=== PATIENT | male | born 1965 | race Two or more races ===

== ENCOUNTER → 2025-06-01 | Outpatient (CLI) | payer OTHER ==
[2025-06-01 08:51] LABS: Urine Protein, UAD Negative (Negative)
[2025-06-01 09:01] LABS: Hematocrit 48.7 % (41.0-53.0); Hemoglobin 17.0 g/dL (13.5-17.5); Mean Corpuscular Hemoglobin 32.3 pg (28.0-32.0); Mean Corpuscular Volume 92.7 fL (80.0-100.0); Nucleated Red Blood Cells % 0.2 %
[2025-06-01 09:18] LABS: Alanine Aminotransferase 29 U/L (7-40); Albumin 4.5 g/dL (3.2-4.8); Alkaline Phosphatase 91 U/L (46-116); Anion Gap 10 (5-15); BUN/Creatinine Ratio 8.5 (10.0-20.0); Calcium 10.3 mg/dL (8.7-10.4); Carbon Dioxide 27 mmol/L (20-31); Chloride 103 mmol/L (98-107); Glucose 93 mg/dL (74-106); Sodium 140 mmol/L (136-145); Total Protein 7.5 g/dL (5.7-8.2)
[2025-06-01 09:19] LABS: HDL Cholesterol 52 mg/dL (40-59)
[2025-06-01 09:20] LABS: Bilirubin, Total 0.9 mg/dL (0.2-1.0)
[2025-06-01 09:25] LABS: Blood Urea Nitrogen 8 mg/dL (9-23); Cholesterol 239 mg/dL (< 200); Potassium 3.4 mmol/L (3.5-5.1); Triglycerides 413 mg/dL (< 150)
[2025-06-01 11:12] LABS: Hepatitis A Total Antibody Positive (Negative); Hepatitis B Surface Antigen Negative (Negative)
[2025-06-01 11:13] LABS: Hepatitis C Antibody Negative (Negative)
[2025-06-01 12:05] LABS: Prostate Specific Antigen 0.5 ng/mL (0.0-4.0)
== END | disposition home or self-care (01) ==
LOC: LAB 06:30
PROVIDERS: ATTEND Nurse Practitioner Family
DX: I10 Essential (primary) hypertension (principal); E78.5 Hyperlipidemia, unspecified; E55.9 Vitamin D deficiency, unspecified; F10.26 Alcohol dependence with alcohol-induced persisting amnestic disorder; Z12.5 Encounter for screening for malignant neoplasm of prostate; Z11.3 Encounter for screening for infections with a predominantly sexual mode of transmission; Z12.11 Encounter for screening for malignant neoplasm of colon
CPT/HCPCS: 36415; 80053; 80061; 81003; 82607; 82977; 83036; 84153; 84443; 85025; 86703; 86704; 86706; 86708; 86780; 86803; 87340

== ENCOUNTER 2025-07-30 06:16 | Outpatient (CLI) | payer OTHER ==
[2025-07-30 07:03] LABS: Alanine Aminotransferase 32 U/L (7-40); Albumin 4.4 g/dL (3.2-4.8); Alkaline Phosphatase 97 U/L (46-116); Anion Gap 10 (5-15); BUN/Creatinine Ratio 15.5 (10.0-20.0); Bilirubin, Total 0.7 mg/dL (0.2-1.0); Blood Urea Nitrogen 15 mg/dL (9-23); Calcium 9.7 mg/dL (8.7-10.4); Carbon Dioxide 29 mmol/L (20-31); Chloride 101 mmol/L (98-107); Glucose 100 mg/dL (74-106); Potassium 3.4 mmol/L (3.5-5.1); Sodium 140 mmol/L (136-145); Total Protein 7.5 g/dL (5.7-8.2)
[2025-07-30 07:27] LABS: Cholesterol 155 mg/dL (< 200); Triglycerides 182 mg/dL (< 150)
[2025-07-30 07:28] LABS: HDL Cholesterol 38 mg/dL (40-59)
== END 2025-07-30 17:00 | disposition home or self-care (01) ==
LOC: LAB 06:16
PROVIDERS: ATTEND Nurse Practitioner Family
DX: E78.5 Hyperlipidemia, unspecified (principal); R74.9 Abnormal serum enzyme level, unspecified
CPT/HCPCS: 36415; 80053; 80061